=== PATIENT | female | born 1985 | race Caucasian/White ===

== ENCOUNTER 2021-09-13 18:33 | Emergency (ER) | payer BC, OTHER ==
[2021-09-13] MEDS ORDERED: Acetaminophen/HYDROcodone 325-10 MG Tab PO ONE (18:34)
[2021-09-13] MEDS ORDERED: Cyclobenzaprine 10 MG Tab PO ONE (18:34)
[2021-09-13] MEDS ORDERED: fentaNYL 100 MCG/2 ML SDV IVPUSH ONE ×2 (19:36→20:52)
[2021-09-13] MEDS ORDERED: Ondansetron 4 MG/2 ML SDV IVPUSH ONE (19:36)
[2021-09-13] MEDS ORDERED: Acetaminophen/HYDROcodone 325-10 MG Tab ONE (21:52)
[2021-09-13] MEDS ORDERED: Cyclobenzaprine 10 MG Tab ONE (21:53)
== END 2021-09-13 22:15 | disposition home or self-care (01) ==
LOC: DL.ED 18:33
DX: S70.02XA Contusion of left hip, initial encounter (principal); S70.12XA Contusion of left thigh, initial encounter; Z72.0 Tobacco use; W00.0XXA Fall on same level due to ice and snow, initial encounter
CPT/HCPCS: 36415; 72192; 84703; 96374; 96375; 96376; 99284-25; A9270-GY; J2405; J3010

== ENCOUNTER 2024-05-07 21:29 | Emergency (ER) | payer BC, MEDICAID, OTHER ==
[2024-05-07] MEDS ORDERED: Sodium Chloride 0.9% 10 ML Syringe FLUSH PRN (21:44)
[2024-05-07] MEDS: Ondansetron 4 MG/2 ML SDV IVPUSH ONE (21:50)
[2024-05-07] MEDS: Ketorolac 30 MG/ML SDV IVPUSH ONE (21:50)
[2024-05-07] MEDS: GI Cocktail Oral Solution 30 ML PO ONE (21:50)
[2024-05-07 22:01] LABS: BASOPHILS PERCENT AUTO 0.6 % (0.0-1.0); EOSINOPHILS PERCENT AUTO 2.3 % (1.0-3.0); HEMATOCRIT 40.8 % (37.0-47.0); HEMOGLOBIN 13.9 g/dL (12.0-16.0); LYMPHOCYTES PERCENT AUTO 35.1 % (20.5-50.1); MEAN CORPUSCULAR HEMOGLOBIN 31.2 pg (27.0-34.0); MEAN CORPUSCULAR HGB CONC 34.1 g/dL (33.0-35.0); MEAN CORPUSCULAR VOLUME 91.7 fL (80-100); MONOCYTES PERCENT AUTO 6.5 % (2-8); NEUTROPHILS PERCENT AUTO 55.5 % (42.2-75.2); PLATELET COUNT,PLT 402 10^3/uL (150-450); RED BLOOD CELL COUNT 4.45 10^6/uL (4.2-5.4); WHITE BLOOD CELL COUNT,WBC 11.1 10^3/uL (5.0-10.0)
[2024-05-07 22:10] LABS: A/G RATIO 1.4; ALANINE AMINOTRANSFERASE,ALT 22 U/L (14-59); ALBUMIN 4.1 g/dL (3.4-5.0); ALKALINE PHOSPHATASE 73 U/L (46-116); ANION GAP 10.5 mEq/L (7-13); ASPARTATE AMNIOTRANSFERASE,AST 9 U/L (15-37); BILIRUBIN TOTAL 0.3 mg/dL (0.2-1.0); BLOOD UREA NITROGEN,BUN 10 mg/dL (7-18); BUN/CREATININE RATIO 12.3 (No establ ref range); CALCIUM 9.2 mg/dL (8.5-10.1); CARBON DIOXIDE,CO2 28 mmol/L (21-32); CHLORIDE,CL 106 mmol/L (98-107); CREATININE 0.81 mg/dL (0.55-1.02); EST CRCL DRUG DOSING (CG) 71.76 mL/min; LIPASE 39 U/L (16-77); MAGNESIUM 2.1 mg/dL (1.8-2.4); POTASSIUM,K 3.5 mmol/L (3.5-5.1); PROTEIN TOTAL,TP 7.1 g/dL (6.4-8.2); SODIUM,NA 141 mmol/L (136-145)
[2024-05-07 22:16] LABS: LACTIC ACID 0.7 mmol/L (0.4-2.0)
[2024-05-07 22:19] LABS: C-REACTIVE PROTEIN < 0.50 ng/dL (<=0.50); ESTIMATED GFR 96 mL/min (>=60); GLUCOSE RANDOM 68 mg/dL (70-99)
[2024-05-07 22:28] LABS: APPEARANCE,URINE CLEAR (CLEAR); BILIRUBIN,URINE NEGATIVE (NEGATIVE); COLOR,URINE YELLOW (YELLOW); GLUCOSE,URINE NEGATIVE (NEGATIVE); KETONES,URINE NEGATIVE (NEGATIVE); LEUKOCYTE ESTERASE,URINE NEGATIVE (NEGATIVE); NITRITE,URINE NEGATIVE (NEGATIVE); OCCULT BLOOD,URINE NEGATIVE (NEGATIVE); PH,URINE 8.5 (5.0-9.0); PROTEIN,URINE NEGATIVE (NEGATIVE); UROBILINOGEN,URINE 0.2 mg/dL (0.2-1.0)
[2024-05-07] MEDS ORDERED: Lactulose Soln 10 GM/15 ML 30 ML UD Cup PO ONE (22:42)
== END 2024-05-07 22:50 | disposition home or self-care (01) ==
LOC: DL.ED 21:29
DX: K59.00 Constipation, unspecified (principal); Z90.49 Acquired absence of other specified parts of digestive tract; Z79.899 Other long term (current) drug therapy; Z88.8 Allergy status to other drugs, medicaments and biological substances
CPT/HCPCS: 36415; 74018; 80053; 81003; 81025; 83605; 83690; 83735; 85025; 86140; 96374; 96375; 99284; A9270; J1885; J2405

== ENCOUNTER 2024-08-20 18:00 | Emergency (ER) | payer MEDICAID ==
[2024-08-20] MEDS: diphenhydrAMINE 50 MG/ML SDV IVPUSH ONE (18:19)
[2024-08-20] MEDS: Metoclopramide 10 MG/2 ML SDV IVPUSH ONE (18:19)
[2024-08-20] MEDS: Sodium Chloride 0.9% 1,000 ML IV ONE (18:22)
== END 2024-08-20 19:16 | disposition home or self-care (01) ==
LOC: DL.ED 18:00
DX: O99.891 Other specified diseases and conditions complicating pregnancy (principal); R51.9 Headache, unspecified; Z79.899 Other long term (current) drug therapy; Z88.8 Allergy status to other drugs, medicaments and biological substances; Z3A.10 10 weeks gestation of pregnancy; Z90.49 Acquired absence of other specified parts of digestive tract
CPT/HCPCS: 96361; 96374; 96375; 99283; J1200; J2765; J7030

== ENCOUNTER 2024-09-24 14:45 | Emergency (ER) | payer MEDICAID ==
[2024-09-24] MEDS: Acetaminophen 325 MG Tab PO ONE (14:54)
[2024-09-24] MEDS: fentaNYL 100 MCG/2 ML SDV IM ONE (14:55)
== END 2024-09-24 16:14 ==
LOC: DL.ED 14:45
DX: O99.891 Other specified diseases and conditions complicating pregnancy (principal); R10.2 Pelvic and perineal pain; R33.9 Retention of urine, unspecified; M54.9 Dorsalgia, unspecified; O09.522 Supervision of elderly multigravida, second trimester; Z3A.15 15 weeks gestation of pregnancy
CPT/HCPCS: 96372; 99284; A9270; J3010

== ENCOUNTER 2024-11-06 11:54 | Observation (INO) | payer MEDICAID ==
[2024-11-06] MEDS ORDERED: Sodium Chloride 0.9% 10 ML Syringe FLUSH PRN (12:31)
[2024-11-06] MEDS: Ketorolac 30 MG/ML SDV IVPUSH ONE (12:45)
[2024-11-06] MEDS: methylPREDNISolone Sodium Succinate 125 MG/2 ML SDV IVPUSH ONE (12:45)
[2024-11-06] MEDS: Sodium Chloride 0.9% 1,000 ML IV ONE (12:46)
[2024-11-06] MEDS: Albuterol/Ipratropium 3.0-0.5 MG/3 ML Neb Soln NEB ONE (12:46)
[2024-11-06 12:59] LABS: BASOPHILS PERCENT AUTO 0.2 % (0.0-1.0); EOSINOPHILS PERCENT AUTO 1.2 % (1.0-3.0); HEMATOCRIT 35.3 % (37.0-47.0); HEMOGLOBIN 11.7 g/dL (12.0-16.0); LYMPHOCYTES PERCENT AUTO 12.7 % (20.5-50.1); MEAN CORPUSCULAR HGB CONC 33.1 g/dL (33.0-35.0); MEAN CORPUSCULAR VOLUME 93.6 fL (80-100); MONOCYTES PERCENT AUTO 5.8 % (2-8); NEUTROPHILS PERCENT AUTO 80.1 % (42.2-75.2); PLATELET COUNT,PLT 298 10^3/uL (150-450); RED BLOOD CELL COUNT 3.77 10^6/uL (4.2-5.4); WHITE BLOOD CELL COUNT,WBC 13.2 10^3/uL (5.0-10.0)
[2024-11-06 13:15] LABS: INR 0.8 (0.9-1.2); PROTHROMBIN TIME 8.9 SEC (9.0-12.0)
[2024-11-06 13:17] LABS: ALBUMIN 2.6 g/dL (3.4-5.0); ANION GAP 14.7 mEq/L (7-13); BILIRUBIN TOTAL 0.3 mg/dL (0.2-1.0); BUN/CREATININE RATIO 16.7 (No establ ref range); C-REACTIVE PROTEIN 4.08 ng/dL (<=0.50); CALCIUM 8.5 mg/dL (8.5-10.1); CREATININE 0.54 mg/dL (0.55-1.02); EST CRCL DRUG DOSING (CG) 106.59 mL/min; MAGNESIUM 1.8 mg/dL (1.8-2.4); POTASSIUM,K 3.7 mmol/L (3.5-5.1); PROTEIN TOTAL,TP 6.3 g/dL (6.4-8.2)
[2024-11-06 13:18] LABS: A/G RATIO 0.7
[2024-11-06 13:21] LABS: LACTIC ACID 0.7 mmol/L (0.4-2.0)
[2024-11-06] MEDS: Acetaminophen 500 MG Tab PO ONE (13:54)
[2024-11-06] MEDS: cefTRIAXone 1 GM Vial IVPUSH ONE (13:56)
[2024-11-06] MEDS ORDERED: Ondansetron 4 MG Tab.DIS PO PRN (15:12)
[2024-11-06] MEDS ORDERED: Albuterol 0.083% 2.5 MG/3 ML Neb Soln NEB PRN (15:12)
[2024-11-06] MEDS: Albuterol/Ipratropium 3.0-0.5 MG/3 ML Neb Soln NEB SCH (15:52)
[2024-11-06] MEDS: Sodium Chloride 0.9% 1,000 ML IV SCH (15:57)
[2024-11-06] MEDS: Lidocaine 5% 700 MG Patch TOP ONE (16:05)
[2024-11-06] MEDS: Aspirin 81 MG Tab.EC PO SCH (17:41)
[2024-11-06] MEDS: FLUoxetine 10 MG Cap PO SCH (17:41)
[2024-11-06] MEDS: Acetaminophen 500 MG Tab PO SCH (17:41)
[2024-11-06] MEDS: Azithromycin 250 MG Tab PO SCH (17:42)
[2024-11-06] MEDS ORDERED: Naloxone 2 MG/2 ML Syringe IVPUSH PRN ×2 (18:55→18:57)
[2024-11-06] MEDS ORDERED: Morphine 2 MG/ML SYRINGE IVPUSH ONE (18:55)
[2024-11-06] MEDS: Morphine 2 MG/ML SYRINGE IVPUSH ONE (19:25)
[2024-11-06] MEDS: Prenatal Multivitamin with Calcium/Folic Acid/Iron Tab PO SCH (20:58)
[2024-11-06] MEDS: guaiFENesin/Dextromethorphan 100-10 MG/5 ML Soln 5 ML Cup PO PRN (21:03)
[2024-11-06] MEDS: oxyCODONE 5 MG Tab PO PRN (21:13)
[2024-11-07] MEDS: predniSONE 20 MG Tab PO SCH (08:39)
[2024-11-07] MEDS: NS + KCl 20mEq/L 1,000 ML IV SCH (09:51)
[2024-11-07] MEDS: cefTRIAXone 1 GM Vial IVPUSH SCH (14:34)
== END 2024-11-08 11:50 | disposition home or self-care (01) ==
LOC: DL.ED 11:54 → DL.MS 15:12
PROVIDERS: ADMIT Family Medicine; ATTEND Family Medicine
DX: O99.512 Diseases of the respiratory system complicating pregnancy, second trimester (principal); J18.9 Pneumonia, unspecified organism; Z3A.21 21 weeks gestation of pregnancy; F17.210 Nicotine dependence, cigarettes, uncomplicated
CPT/HCPCS: 71045; 80053; 83605; 83735; 85025; 85610; 85730; 86140; 87040; 87428; 94010; 94640; 96361; 96374; 96375; 99284; 99285; A9270; J0696; J1885; J2270; J2919; J3480; J7030; J7512; J7620; 96376; G0378